=== PATIENT | male | born 1990 | race Hispanic/Latino ===

== ENCOUNTER 2017-01-02 16:02 | Emergency (ER) | payer OTHER ==
[2017-01-02 16:03] VITALS: BMI 21.9
--- NOTE | 2017-01-02 17:40 | ED PDOC ---
HPI: Psych/Substance Abuse Time Seen by Provider: 01/02/17 16:35 Chief Complaint (Nursing): Alcohol Ingestion Chief Complaint (Provider): intoxication Additional Complaint(s): 26yo M in ED for eval of intoxication-was brought to ED by EMS-for intoxication. was very aggressive in triage, unwilling to cooperate with staff and demonstrating aggressive tendencies. pt with uunstable gait and slurred speech..no evidenced of fall injury Past Medical History Reviewed: Historical Data, Nursing Documentation, Vital Signs Vital Signs: Last Vital Signs Temp 97.8 F 01/02/17 16:08 Pulse 81 01/02/17 16:08 Resp 20 01/02/17 16:08 BP 133/70 01/02/17 16:08 Pulse Ox 96 01/02/17 16:08 - Family History Family History: States: No Known Family Hx - Immunization History Hx Tetanus Toxoid Vaccination: No - Home Medications Home Medications: Ambulatory Orders Medication Instructions Recorded Unobtainable 04/04/16 - Allergies Allergies/Adverse Reactions: Allergies Allergy/AdvReac Type Severity Reaction Status Date / Time Unobtainable Allergy Verified 01/02/17 16:08 Review of Systems Review Of Systems: ROS cannot be obtained secondary to pt's inabilty to answer questions. Physical Exam - Reviewed Nursing Documentation Reviewed: Yes Vital Signs Reviewed: Yes - Physical Exam Appears: Positive for: Non-toxic, No Acute Distress. Negative for: Well ( intoxicated, slurred speech) Head Exam: Positive for: ATRAUMATIC, NORMAL INSPECTION, NORMOCEPHALIC Skin: Positive for: Normal Color, Warm, DRY Cardiovascular/Chest: Positive for: Regular Rate, Rhythm Respiratory: Positive for: CNT, Normal Breath Sounds Neurologic/Psych: Positive for: Alert, Oriented - ECG O2 Sat by Pulse Oximetry: 96 - Progress ED Course And Treament: PT required physical restraints in for staff adn pt safety concerns. pt became domicile and restraints were removed. no medication required at this time to relieved agitation. pt placed on 1:1 Disposition - Disposition
[2017-01-02 22:15] VITALS: BP 131/70; PULSE 76; RESP 18; TEMP 98; O2SAT 99
--- NOTE | 2017-01-02 23:11 | ED PDOC ---
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 Ambulating steady gait. Stable for discharge Disposition - Clinical Impression Clinical Impression: Alcohol intoxication - POA Present On Arrival: None - Disposition Disposition: Routine/Home Disposition Time: 23:09 Condition: STABLE Instructions: Alcohol Intoxication (ED)
== END 2017-01-02 23:30 | disposition home or self-care (01) ==
LOC: H.ER 16:02
DX: F10.129 Alcohol abuse with intoxication, unspecified (principal)

== ENCOUNTER 2017-01-12 01:33 | Emergency (ER) | payer MEDICAID, OTHER ==
[2017-01-12 01:33] VITALS: BMI 21.9
--- NOTE | 2017-01-12 01:57 | ED PDOC ---
HPI: Psych/Substance Abuse Time Seen by Provider: 01/12/17 01:45 Chief Complaint (Nursing): Alcohol Ingestion Chief Complaint (Provider): alcohol ingestion History Per: Family (26 y/o male undomiciled here with medics for possible intoxication. Patient is accompanied by friend who states he was drinking etoh and smoking K2. No head injury noted. Patient not responding to questions in ED.) Past Medical History Reviewed: Historical Data, Nursing Documentation, Vital Signs Vital Signs: Last Vital Signs Temp 98.6 F 01/12/17 01:43 Pulse 82 01/12/17 01:43 Resp 12 01/12/17 01:43 BP 124/82 01/12/17 01:43 Pulse Ox 96 01/12/17 01:43 - Family History Family History: States: No Known Family Hx - Immunization History Hx Tetanus Toxoid Vaccination: No - Home Medications Home Medications: Ambulatory Orders Medication Instructions Recorded Unobtainable 04/04/16 - Allergies Allergies/Adverse Reactions: Allergies Allergy/AdvReac Type Severity Reaction Status Date / Time Unobtainable Allergy Verified 01/12/17 01:47 Review of Systems ROS Statement: Except As Marked, All Systems Reviewed And Found Negative Physical Exam - Reviewed Nursing Documentation Reviewed: Yes Vital Signs Reviewed: Yes - Physical Exam Appears: Positive for: Well, Non-toxic, No Acute Distress Head Exam: Positive for: ATRAUMATIC, NORMAL INSPECTION, NORMOCEPHALIC Skin: Positive for: Normal Color, Warm, DRY Eye Exam: Positive for: EOMI, Normal appearance, PERRL ENT: Positive for: Normal ENT Inspection Neck: Positive for: Normal, Painless ROM Cardiovascular/Chest: Positive for: Regular Rate, Rhythm Respiratory: Positive for: CNT, Normal Breath Sounds Gastrointestinal/Abdominal: Positive for: Normal Exam, Bowel Sounds, Soft Back: Positive for: Normal Inspection Extremity: Positive for: Normal ROM Neurologic/Psych: Positive for: Alert, Oriented - Laboratory Results Result Diagrams: 01/12/17 02:44 01/12/17 02:44 - ECG O2 Sat by Pulse Oximetry: 96 - Progress ED Course And Treament: PATIENT NOTED PROGRESSIVELY ALERT IN ED. STATES HE HAS ONLY INGESTED ALCOHOL. Disposition - Clinical Impression Clinical Impression: Alcohol ingestion - Patient ED Disposition Is Patient to be Admitted: Transfer of Care - Disposition Disposition: Transfer of Care Disposition Time: 00:00 Condition: FAIR Instructions: Alcohol Intoxication (ED) Forms: [facility] (Tur[place] Islander) Patient Signed Over To: Edd Rick Handoff Comments: PENDING SOBRIETY.
[2017-01-12] MEDS ORDERED: Sodium Chloride 0.9% 1,000 ML IV STA (02:11)
[2017-01-12 02:59] LABS: BASO % 0.5 % (0.0-2.0); EOS # 0.1 K/uL (0.0-0.7); EOS % 1.2 % (0.0-4.0); HEMOGLOBIN 14.4 g/dL (12.0-18.0); LYMPH # 1.9 K/uL (1.0-4.3); LYMPH % 24.6 % (20.0-40.0); MEAN CELL VOLUME 89.6 fl (80.0-94.0); MEAN CORPUSCULAR HEMOGLOBIN 31.1 pg (27.0-31.0); MEAN CORPUSCULAR HGB CONC 34.7 g/dL (33.0-37.0); MEAN PLATELET VOLUME 6.7 fl (7.2-11.7); MONO # 0.6 K/uL (0.0-0.8); MONO % 7.2 % (0.0-10.0); NEUT # 5.2 K/uL (1.8-7.0); NEUT % 66.5 % (50.0-75.0); NRBC % 0.1 % (0.0-0.0); RBC 4.64 Mil/uL (4.40-5.90); RED CELL DISTRIBUTION WIDTH 12.9 % (11.5-14.5); WHITE BLOOD COUNT 7.8 K/uL (4.8-10.8)
[2017-01-12 03:12] LABS: ALB/GLOB RATIO 1.4 (1.0-2.1); ALBUMIN 4.6 g/dL (3.5-5.0); ALT/SGPT 34 U/L (21-72); AST/SGOT 48 U/L (17-59); BLOOD UREA NITROGEN 14 mg/dl (9-20); CALCIUM 9.5 mg/dL (8.4-10.2); GFR AFRICAN-AMERICAN > 60; GFR NON-AFRICAN AMERICAN > 60
[2017-01-12 05:55] VITALS: O2SAT 96
--- NOTE | 2017-01-12 06:09 | ED PDOC ---
- Laboratory Results Result Diagrams: 01/12/17 02:44 01/12/17 02:44 - ECG O2 Sat by Pulse Oximetry: 96 Medical Decision Making Medical Decision Making: Time: 06:00 Patient signed out to me by CHERYL Torres pending clinical sobriety. Reassess ----time: 07:00 Patient to be signed out to Dr. Braswell pending clinical sobriety. Scribe Attestation: Documented by Prakash Navarro acting as a scribe for Edd Rick MD. Provider Attestation: All medical record entries made by the Scribe were at my direction and personally dictated by me. I have reviewed the chart and agree that the record accurately reflects my personal performance of the history, physical exam, medical decision making, and the department course for this patient. I have also personally directed, reviewed, and agree with the discharge instructions and disposition. Disposition Doctor Will See Patient In The: ED - Clinical Impression Clinical Impression: Alcohol ingestion, Alcohol intoxication - POA Present On Arrival: None - Disposition Disposition: Transfer of Care Disposition Time: 07:00 (pending sobriety) Condition: FAIR Instructions: Alcohol Intoxication (ED) Forms: [employer] (Bahamian) Patient Signed Over To: Destin Braswell
--- NOTE | 2017-01-12 07:17 | ED PDOC ---
- Laboratory Results Result Diagrams: 01/12/17 02:44 01/12/17 02:44 - ECG O2 Sat by Pulse Oximetry: 96 (RA) Pulse Ox Interpretation: Normal - Progress Re-evaluation Time: 08:04 Condition: Improved (awake alert) Medical Decision Making Medical Decision Making: Time: 07:00 --Patient signed out to me by Dr. Edd Rick, pending clinical sobriety. Time: 07:45 On provider reevaluation, patient is awake and alert. Able to ambulate with steady gait and clear speech. Clinical Impression: Alcohol intoxication Scribe Attestation: Documented by Dolly Kraft acting as a scribe for Destin Braswell MD. Provider Attestation: All medical record entries made by the Scribe were at my direction and personally dictated by me. I have reviewed the chart and agree that the record accurately reflects my personal performance of the history, physical exam, medical decision making, and the department course for this patient. I have also personally directed, reviewed, and agree with the discharge instructions and disposition. Disposition Counseled Patient/Family Regarding: Diagnosis, Need For Followup - Clinical Impression Clinical Impression: Alcohol ingestion, Alcohol intoxication - POA Present On Arrival: None - Disposition Disposition: Routine/Home Disposition Time: 08:04 Condition: FAIR Instructions: Alcohol Intoxication (ED) Forms: [employer] (Burmese)
[2017-01-12 10:06] VITALS: BP 124/76; PULSE 78; RESP 18; TEMP 98.1
== END 2017-01-12 10:06 | disposition home or self-care (01) ==
LOC: H.ER 01:33
DX: F10.129 Alcohol abuse with intoxication, unspecified (principal)
CPT/HCPCS: 80053; 80320; 85025; 96360; 96361; 99283; J7040

== ENCOUNTER 2017-02-26 00:17 | Emergency (ER) | payer MEDICAID ==
[2017-02-26 00:17] VITALS: BMI 21.9
[2017-02-26 00:23] VITALS: TEMP 97.2
--- NOTE | 2017-02-26 03:31 | ED PDOC ---
HPI: Psych/Substance Abuse Time Seen by Provider: 02/26/17 00:31 Chief Complaint (Nursing): Alcohol Ingestion Chief Complaint (Provider): Alcohol Ingestion ED Caveat: Intoxicated History Per: Patient, EMS History/Exam Limitations: no limitations Onset/Duration Of Symptoms: Days (x today) Current Symptoms Are (Timing): Still Present Modifying Factor(s): Alcohol Additional Complaint(s): Betito is a 26 year old female who presents to the emergency department via EMS for alcohol intoxication. PMD: No Provider Past Medical History Reviewed: Historical Data, Nursing Documentation, Vital Signs Vital Signs: Last Vital Signs Temp 97.2 F L 02/26/17 00:19 Pulse 85 02/26/17 02:35 Resp 17 02/26/17 02:35 BP 113/54 L 02/26/17 02:35 Pulse Ox 95 02/26/17 02:35 - Medical History PMH: No Chronic Diseases - Surgical History Surgical History: No Surg Hx - Family History Family History: States: Unknown Family Hx - Immunization History Hx Tetanus Toxoid Vaccination: No - Home Medications Home Medications: Ambulatory Orders Medication Instructions Recorded Unobtainable 04/04/16 - Allergies Allergies/Adverse Reactions: Allergies Allergy/AdvReac Type Severity Reaction Status Date / Time Unobtainable Allergy Verified 02/26/17 00:19 Review of Systems Review Of Systems: ROS cannot be obtained secondary to pt's inabilty to answer questions. (Caveat: Intoxication) Physical Exam - Reviewed Nursing Documentation Reviewed: Yes Vital Signs Reviewed: Yes - Physical Exam Appears: Positive for: Well Head Exam: Positive for: ATRAUMATIC, NORMAL INSPECTION, NORMOCEPHALIC Skin: Positive for: Normal Color, Warm, Dry Eye Exam: Positive for: Normal appearance ENT: Positive for: Normal ENT Inspection Neck: Positive for: Normal Cardiovascular/Chest: Positive for: Regular Rate, Rhythm Respiratory: Positive for: Normal Breath Sounds. Negative for: Respiratory Distress Gastrointestinal/Abdominal: Positive for: Normal Exam Back: Positive for: Normal Inspection Extremity: Positive for: Normal ROM. Negative for: Deformity Neurologic/Psych: Positive for: Alert, Oriented - ECG O2 Sat by Pulse Oximetry: 95 (RA) Medical Decision Making Medical Decision Making: Upon provider evaluation patient is medically stable, and requires no further treatment in the ED at this time. Patient will be discharged. Scribe Attestation: Documented by Bear Navarrete, acting as a scribe for Edd Rick MD Provider Scribe Attestation: All medical record entries made by the Scribe were at my direction and personally dictated by me. I have reviewed the chart and agree that the record accurately reflects my personal performance of the history, physical exam, medical decision making, and the department course for this patient. I have also personally directed, reviewed, and agree with the discharge instructions and disposition. Disposition - Clinical Impression Clinical Impression: Alcohol abuse with intoxication - Patient ED Disposition Is Patient to be Admitted: No - Disposition Disposition: Routine/Home Disposition Time: 06:00 Condition: STABLE Instructions: Alcohol Intoxication (ED) Forms: [employer] (Kenyan)
[2017-02-26 05:20] VITALS: BP 119/61; PULSE 84; RESP 17; O2SAT 97
== END 2017-02-26 06:01 | disposition home or self-care (01) ==
LOC: H.ER 00:17
DX: F10.129 Alcohol abuse with intoxication, unspecified (principal)

== ENCOUNTER 2017-04-10 02:06 | Emergency (ER) | payer MEDICAID ==
[2017-04-10 02:06] VITALS: BMI 21.9
--- NOTE | 2017-04-10 02:50 | ED PDOC ---
HPI: Psych/Substance Abuse Chief Complaint (Nursing): Substance Abuse Chief Complaint (Provider): substance abuse History Per: EMS Additional Complaint(s): 26 y/o male brought in by EMS for evaluation of possible substance abuse. Patient was found sleeping on light rail, found to have half a bottle of promethazine DM cough syrup with him with someone elses name on it. Responds to painful stimuli. HPI slightly limited. History of alcohol abuse. Past Medical History Reviewed: Historical Data, Nursing Documentation, Vital Signs Vital Signs: Last Vital Signs Temp 98.7 F 04/10/17 02:11 Pulse 83 04/10/17 02:11 Resp 16 04/10/17 02:11 BP 97/64 L 04/10/17 02:11 Pulse Ox 98 04/10/17 02:11 - Medical History PMH: No Chronic Diseases - Surgical History Surgical History: No Surg Hx - Family History Family History: States: Unknown Family Hx - Immunization History Hx Tetanus Toxoid Vaccination: No - Home Medications Home Medications: Ambulatory Orders Medication Instructions Recorded Unobtainable 04/04/16 - Allergies Allergies/Adverse Reactions: Allergies Allergy/AdvReac Type Severity Reaction Status Date / Time Unobtainable Allergy Verified 02/26/17 00:19 Review of Systems ROS Statement: Except As Marked, All Systems Reviewed And Found Negative Physical Exam - Reviewed Nursing Documentation Reviewed: Yes Vital Signs Reviewed: Yes - Physical Exam Appears: Positive for: Well, Non-toxic, No Acute Distress Head Exam: Positive for: ATRAUMATIC, NORMAL INSPECTION, NORMOCEPHALIC Skin: Positive for: Normal Color Eye Exam: Positive for: Normal appearance, EOMI, PERRL ENT: Positive for: Normal ENT Inspection Cardiovascular/Chest: Positive for: Regular Rate, Rhythm Respiratory: Positive for: Normal Breath Sounds Gastrointestinal/Abdominal: Positive for: Normal Exam Back: Positive for: Normal Inspection Extremity: Positive for: Normal ROM Neurologic/Psych: Positive for: Alert (responds to painful stimuli) - Laboratory Results Result Diagrams: 04/10/17 02:50 04/10/17 02:50 - ECG O2 Sat by Pulse Oximetry: 98 - Progress ED Course And Treament: accucheck, labs, cardiac cath tech 2:00 Patient sleeping; arousable to painful stimuli 4:30 Patient sleeping; arousable to painful stimuli 6:00 Patient sleeping; responds to verbal stimuli Disposition - Clinical Impression Clinical Impression: Alcohol abuse with intoxication - Disposition Disposition Time: 06:04 Condition: STABLE
[2017-04-10 02:56] LABS: BASO % 0.6 % (0.0-2.0); EOS # 0.3 K/uL (0.0-0.7); EOS % 3.9 % (0.0-4.0); HEMOGLOBIN 15.6 g/dL (12.0-18.0); LYMPH # 3.1 K/uL (1.0-4.3); LYMPH % 36.4 % (20.0-40.0); MEAN CELL VOLUME 92.4 fl (80.0-94.0); MEAN CORPUSCULAR HEMOGLOBIN 31.5 pg (27.0-31.0); MEAN CORPUSCULAR HGB CONC 34.1 g/dL (33.0-37.0); MEAN PLATELET VOLUME 7.4 fl (7.2-11.7); MONO # 0.7 K/uL (0.0-0.8); MONO % 8.4 % (0.0-10.0); NEUT # 4.3 K/uL (1.8-7.0); NEUT % 50.7 % (50.0-75.0); NRBC % 0.1 % (0.0-0.0); RBC 4.94 Mil/uL (4.40-5.90); RED CELL DISTRIBUTION WIDTH 13.4 % (11.5-14.5); WHITE BLOOD COUNT 8.5 K/uL (4.8-10.8)
[2017-04-10 03:06] LABS: ACETAMINOPHEN < 10.0 ug/ml (10.0-30.0); SALICYLATE < 1.0 mg/dl
[2017-04-10 03:08] LABS: ALB/GLOB RATIO 1.2 (1.0-2.1); ALBUMIN 4.6 g/dL (3.5-5.0); ALT/SGPT 48 U/L (21-72); AST/SGOT 37 U/L (17-59); BLOOD UREA NITROGEN 12 mg/dl (9-20); CALCIUM 9.6 mg/dL (8.4-10.2); GFR AFRICAN-AMERICAN > 60; GFR NON-AFRICAN AMERICAN > 60
--- NOTE | 2017-04-10 07:05 | ED PDOC ---
- Laboratory Results Result Diagrams: 04/10/17 02:50 04/10/17 02:50 - ECG O2 Sat by Pulse Oximetry: 98 (RA) Pulse Ox Interpretation: Normal Medical Decision Making Medical Decision Making: Time: 07:00 Patient signed out to me by Dr. Rick, pending sobriety. Patient is clinically sober. No complaints. No HI or SI. No Depression. Patient was advised to stop drinking alcohol. Upon provider evaluation patient is medically stable, and requires no further treatment in the ED at this time. Patient will be discharged. Counseling was provided and all questions were answered regarding diagnosis. There is agreement to discharge plan. Return if symptoms persist or worsen. Scribe Attestation: Documented by Bear Navarrete, acting as a scribe for Reij Ornelas M.D. Provider Scribe Attestation: All medical record entries made by the Scribe were at my direction and personally dictated by me. I have reviewed the chart and agree that the record accurately reflects my personal performance of the history, physical exam, medical decision making, and the department course for this patient. I have also personally directed, reviewed, and agree with the discharge instructions and disposition. Disposition Counseled Patient/Family Regarding: Studies Performed, Diagnosis, Need For Followup - Clinical Impression Clinical Impression: Alcohol abuse with intoxication - POA Present On Arrival: None - Disposition Referrals: [facility] [Outside] (2 to 3 days) Disposition: Routine/Home Disposition Time: 10:46 Condition: GOOD Instructions: Alcohol Abuse and Alcoholism (DC) Forms: [employer] (Belizean)
[2017-04-10 07:21] VITALS: RESP 18
[2017-04-10 10:51] LABS: BARBITURATES, UR NEGATIVE (NEGATIVE); BENZODIAZEPINES, UR NEGATIVE (NEGATIVE); OPIATES, UR NEGATIVE (NEGATIVE); PHENCYCLIDINE, UR NEGATIVE (NEGATIVE)
[2017-04-10 11:06] VITALS: BP 110/69; PULSE 71; TEMP 97.8
[2017-04-10 14:45] VITALS: O2SAT 98
--- NOTE | 2017-04-11 18:12 | CARD ---
APPROVED REPORT EKG Measurement Heart [id number] <Conclusion> Normal sinus rhythm Normal ECG
== END 2017-04-10 11:18 | disposition home or self-care (01) ==
LOC: H.ER 02:06
DX: F10.129 Alcohol abuse with intoxication, unspecified (principal)